=== PATIENT | female | born 1955 | race African-American/Black ===

== ENCOUNTER 2022-09-04 04:17 | Inpatient (IN) | payer MEDICAID, OTHER ==
[2022-09-04] VITALS (37 sets, daily range): BP systolic 94–189; BP diastolic 62–119
[~2022-09-04] VITALS: Ht 170.2 cm; Wt 41.5 kg
[2022-09-04] MEDS ORDERED: ALBUTEROL (0.083%) 2.5MG/3ML NEB HHN STA (04:19)
[2022-09-04] MEDS ORDERED: METHYLPREDNISOLONE SOD SUCC 125 MG/2 ML VIAL IV STA (04:19)
[2022-09-04] MEDS ORDERED: IPRATROPIUM BROMIDE (0.02%) 0.5MG/2.5ML NEB HHN STA (04:19)
[2022-09-04] MEDS ORDERED: MAGNESIUM 2 G PREMIX 50 ML IV STA (04:19)
[2022-09-04] MEDS ORDERED: ASPIRIN 81MG TABLET PO ONE (04:30)
[2022-09-04 05:52] LABS: BASOPHILS % 0.2 % (0.0-2.0); EOSINOPHILS % 0.1 % (0.0-5.0); HEMATOCRIT. 37.8 % (36.0-48.0); HEMOGLOBIN. 12.5 g/dL (12.0-16.0); LYMPHOCYTES % 16.6 % (20.0-50.0); MEAN CORPUSCULAR HEMOGLOBIN 32.1 pg (28.0-32.0); MEAN CORPUSCULAR VOLUME 97.3 fL (81.0-99.0); MEAN PLATELET VOLUME 8.1 fl (7.4-10.4); MONOCYTES % 3.9 % (2.0-8.0); NEUTROPHILS % 79.2 % (40.0-76.0); PLATELET 482 x1000/uL (130-400); RED BLOOD CELL COUNT 3.89 mill/uL (4.2-5.4); RED CELL DISTRIBUTION WIDTH 14.2 % (11.6-14.6)
[2022-09-04 06:02] LABS: CHLORIDE 110 mEq/L (98-107)
[2022-09-04] MEDS ORDERED: IPRATROPIUM/ALBUTEROL 0.5-3(2.5)MG/3ML NEB HHN PRN (10:30)
[2022-09-04] MEDS ORDERED: DOCUSATE SODIUM 100MG CAPSULE PO PRN (10:30)
[2022-09-04] MEDS ORDERED: ONDANSETRON HCL 4MG/2ML INJ IV PRN (10:30)
[2022-09-04] MEDS ORDERED: MAGNESIUM/ALUMINUM HYDROXIDE/SIMETHICONE 30ML UDC PO PRN (10:30)
[2022-09-04] MEDS ORDERED: CLONIDINE 0.1MG TABLET PO PRN (10:30)
[2022-09-04] MEDS ORDERED: ACETAMINOPHEN 325MG TABLET PO PRN (10:30)
[2022-09-04] MEDS ORDERED: GUAIFENESIN 200MG/10ML SUGAR FREE UDC PO PRN (10:30)
[2022-09-04] MEDS: METHYLPREDNISOLONE SOD SUCC 40 MG/ML VIAL IV SCH ×3 (11:19→22:14)
[2022-09-04] MEDS: ENOXAPARIN 30MG/0.3ML SYR SUBCUT SCH (11:20)
[2022-09-04] MEDS: AMLODIPINE 10MG TABLET PO SCH (11:20)
[2022-09-04] MEDS: TRAMADOL 50MG TABLET PO PRN (11:20)
[2022-09-04] MEDS ORDERED: ALPRAZOLAM 0.25 MG TABLET PO PRN (13:00)
[2022-09-04] MEDS ORDERED: DILTIAZEM HCL 5MG/ML 5ML VIAL IV ONE (13:00)
[2022-09-04] MEDS: HYDRALAZINE HCL 50MG TABLET PO SCH ×2 (13:12→22:14)
[2022-09-04] MEDS ORDERED: HYDRALAZINE 20MG/ML VIAL IV PRN (13:15)
[2022-09-04] MEDS ORDERED: FUROSEMIDE 40MG/4ML VIAL IVP NR (13:15)
[2022-09-04 14:50] LABS: BG BASE EXCESS -2.3 mmol/L (-2.0-2.0); BG CARBOXYHEMOGLOBIN 0.6 % (0.5-1.5); BG FRACTION INSPIRED OXYGEN 70; BG METHEMOGLOBIN 0.2 % (0.0-1.5); BG OXYHEMOGLOBIN 93.2 % (94.0-97.0); BG PCO2 36.7 mmHg (35.0-45.0); BG PH 7.395 (7.350-7.450); BG PO2 69.5 mmHg (75.0-100.0); BG SAMPLE SITE LEFT BRACHIAL; BG TOTAL HEMOGLOBIN 15.1 g/dL (12.0-18.0); BG VENT MODE MASK - BIPAP
[2022-09-04] MEDS ORDERED: ALBU6.7H3 INH (15:44)
[2022-09-04] MEDS ORDERED: BUDE6HFA INH (15:44)
[2022-09-04] MEDS ORDERED: COR3 MT (15:44)
[2022-09-04] MEDS: IPRATROPIUM/ALBUTEROL 0.5-3(2.5)MG/3ML NEB HHN SCH ×2 (16:10→20:34)
[2022-09-04 16:42] LABS: *AMPHETAMINES SCREEN URINE NEGATIVE (NEGATIVE); *BARBITURATES SCREEN URINE NEGATIVE (NEGATIVE); *BENZODIAZEPINES SCREEN URINE NEGATIVE (NEGATIVE); *COCAINE SCREEN URINE NEGATIVE (NEGATIVE); CANNABINOID URINE SCREEN NEGATIVE (NEGATIVE); METHADONE URINE SCREEN NEGATIVE (NEGATIVE); OPIATES URINE SCREEN NEGATIVE (NEGATIVE); PHENCYCLIDINE URINE SCREEN NEGATIVE (NEGATIVE)
[2022-09-04] MEDS: NICOTINE 21MG PATCH TD SCH (17:42)
[2022-09-04] MEDS ORDERED: NALOXONE HCL 0.4MG/ML VIAL IV PRN (17:45)
[2022-09-04] MEDS ORDERED: ENOXAPARIN 40MG/0.4ML SYR SUBCUT NR (21:00)
[2022-09-05] VITALS (34 sets, daily range): BP systolic 95–168; BP diastolic 32–148
[2022-09-05] MEDS: IPRATROPIUM/ALBUTEROL 0.5-3(2.5)MG/3ML NEB HHN SCH ×3 (00:18→09:10)
[2022-09-05] MEDS: METHYLPREDNISOLONE SOD SUCC 40 MG/ML VIAL IV SCH ×4 (05:16→23:05)
[2022-09-05] MEDS: HYDRALAZINE HCL 50MG TABLET PO SCH ×3 (05:19→22:00)
[2022-09-05 08:22] LABS: BG CARBOXYHEMOGLOBIN 0.5 % (0.5-1.5); BG DEOXYHEMOGLOBIN 0.7 % (0.0-5.0); BG METHEMOGLOBIN 0.3 % (0.0-1.5); BG OXYGEN SATURATION 99.3 % (92.0-98.5); BG OXYHEMOGLOBIN 98.5 % (94.0-97.0); BG PCO2 40.8 mmHg (35.0-45.0); BG PH 7.484 (7.350-7.450); BG SAMPLE SITE RIGHT BRACHIAL; BG TOTAL HEMOGLOBIN 13.7 g/dL (12.0-18.0); BG VENT MODE MASK - BIPAP
[2022-09-05] MEDS: NICOTINE 21MG PATCH TD SCH (09:53)
[2022-09-05] MEDS: AMLODIPINE 10MG TABLET PO SCH (09:53)
[2022-09-05] MEDS: ENOXAPARIN 30MG/0.3ML SYR SUBCUT SCH (10:06)
[2022-09-05] MEDS: TRAMADOL 50MG TABLET PO PRN (11:18)
[2022-09-05 12:05] LABS: HEMATOCRIT. 39.2 % (36.0-48.0); HEMOGLOBIN. 13.4 g/dL (12.0-16.0); MEAN CORPUSCULAR VOLUME 96.3 fL (81.0-99.0); PLATELET 430 x1000/uL (130-400); RED BLOOD CELL COUNT 4.07 mill/uL (4.2-5.4); RED CELL DISTRIBUTION WIDTH 13.7 % (11.6-14.6)
[2022-09-05] MEDS ORDERED: FUROSEMIDE 40MG/4ML VIAL IVP NR (12:30)
[2022-09-05] MEDS: SPIRONOLACTONE 25MG TABLET PO SCH (13:12)
[2022-09-05] MEDS: LOSARTAN POTASSIUM 25 MG TABLET PO SCH ×2 (13:13→22:00)
[2022-09-05] MEDS: NITROGLYCERIN OINT 1GM/INCH UDPKT TD SCH ×3 (13:16→23:03)
[2022-09-05] MEDS: NEBIVOLOL HCL 5 MG TABLET PO SCH (13:16)
[2022-09-05 15:55] LABS: CHLORIDE 101 mEq/L (98-107)
[2022-09-05 16:08] LABS: HDL CHOLESTEROL 66 mg/dL (40-59); LDL CHOLESTEROL 155 mg/dL (5-100)
[2022-09-05] MEDS: ASPIRIN 81MG EC TABLET PO SCH (16:39)
[2022-09-05 17:46] LABS: T4 FREE 1.01 ng/dL (0.76-1.46)
[2022-09-06] VITALS (40 sets, daily range): BP systolic 85–122; BP diastolic 49–82
[2022-09-06] MEDS: METHYLPREDNISOLONE SOD SUCC 40 MG/ML VIAL IV SCH ×3 (06:08→17:52)
[2022-09-06] MEDS: LOSARTAN POTASSIUM 25 MG TABLET PO SCH ×3 (06:08→21:49)
[2022-09-06] MEDS: NITROGLYCERIN OINT 1GM/INCH UDPKT TD SCH ×3 (06:08→17:53)
[2022-09-06] MEDS: HYDRALAZINE HCL 50MG TABLET PO SCH ×3 (06:08→21:49)
[2022-09-06 06:21] LABS: PLATELET ESTIMATE INCREASED
[2022-09-06] MEDS: IPRATROPIUM BROMIDE (0.02%) 0.5MG/2.5ML NEB HHN SCH ×3 (08:37→21:02)
[2022-09-06] MEDS: SPIRONOLACTONE 25MG TABLET PO SCH (09:15)
[2022-09-06] MEDS: ASPIRIN 81MG EC TABLET PO SCH (09:15)
[2022-09-06] MEDS: NEBIVOLOL HCL 5 MG TABLET PO SCH (09:15)
[2022-09-06] MEDS: AMLODIPINE 5MG TABLET PO SCH (09:16)
[2022-09-06] MEDS: FUROSEMIDE 40MG TABLET PO SCH (09:16)
[2022-09-06 09:29] LABS: HEMATOCRIT. 38.6 % (36.0-48.0); HEMOGLOBIN. 13.3 g/dL (12.0-16.0); MEAN CORPUSCULAR HEMOGLOBIN 33.1 pg (28.0-32.0); MEAN CORPUSCULAR VOLUME 96.1 fL (81.0-99.0); PLATELET 416 x1000/uL (130-400); RED BLOOD CELL COUNT 4.02 mill/uL (4.2-5.4); RED CELL DISTRIBUTION WIDTH 13.7 % (11.6-14.6)
[2022-09-06 09:55] LABS: CHLORIDE 102 mEq/L (98-107)
[2022-09-06] MEDS: ENOXAPARIN 30MG/0.3ML SYR SUBCUT SCH (10:20)
[2022-09-06] MEDS: NICOTINE 21MG PATCH TD SCH (10:20)
[2022-09-06 17:16] LABS: PLATELET ESTIMATE SLIGHTLY INCREASED
[2022-09-06] MEDS: ENOXAPARIN 60MG/0.6ML SYR SUBCUT SCH (17:52)
[2022-09-06] MEDS: ATORVASTATIN CALCIUM 40MG TABLET PO SCH (21:48)
[2022-09-07] VITALS (11 sets, daily range): BP systolic 113–142; BP diastolic 44–79
[2022-09-07] MEDS: IPRATROPIUM BROMIDE (0.02%) 0.5MG/2.5ML NEB HHN SCH ×4 (01:17→20:07)
[2022-09-07] MEDS: ENOXAPARIN 60MG/0.6ML SYR SUBCUT SCH (06:14)
[2022-09-07] MEDS: LOSARTAN POTASSIUM 25 MG TABLET PO SCH ×3 (06:14→21:00)
[2022-09-07] MEDS: NITROGLYCERIN OINT 1GM/INCH UDPKT TD SCH ×2 (06:15)
[2022-09-07] MEDS: HYDRALAZINE HCL 50MG TABLET PO SCH ×3 (06:15→21:02)
[2022-09-07 06:25] LABS: HEMATOCRIT. 39.1 % (36.0-48.0); HEMOGLOBIN. 13.3 g/dL (12.0-16.0); LYMPHOCYTES % 7.2 % (20.0-50.0); MEAN CORPUSCULAR HEMOGLOBIN 32.6 pg (28.0-32.0); MEAN CORPUSCULAR VOLUME 95.8 fL (81.0-99.0); MEAN PLATELET VOLUME 9.3 fl (7.4-10.4); MONOCYTES % 4.9 % (2.0-8.0); NEUTROPHILS % 87.9 % (40.0-76.0); PLATELET 397 x1000/uL (130-400); RED BLOOD CELL COUNT 4.08 mill/uL (4.2-5.4); RED CELL DISTRIBUTION WIDTH 13.7 % (11.6-14.6)
[2022-09-07 06:27] LABS: PROTHROMBIN TIME 10.4 sec (9.6-11.0)
[2022-09-07 06:50] LABS: CHLORIDE 98 mEq/L (98-107)
[2022-09-07] MEDS: SPIRONOLACTONE 25MG TABLET PO SCH (08:37)
[2022-09-07] MEDS: AMLODIPINE 5MG TABLET PO SCH (08:37)
[2022-09-07] MEDS: ASPIRIN 81MG EC TABLET PO SCH (08:37)
[2022-09-07] MEDS: FUROSEMIDE 40MG TABLET PO SCH (08:38)
[2022-09-07] MEDS: METHYLPREDNISOLONE SOD SUCC 40 MG/ML VIAL IV SCH ×2 (08:38→17:11)
[2022-09-07] MEDS: NICOTINE 21MG PATCH TD SCH (08:39)
[2022-09-07] MEDS: ATORVASTATIN CALCIUM 40MG TABLET PO SCH (21:00)
[2022-09-08] VITALS (7 sets, daily range): BP systolic 113–128; BP diastolic 59–79
[2022-09-08] MEDS: IPRATROPIUM BROMIDE (0.02%) 0.5MG/2.5ML NEB HHN SCH ×4 (01:54→21:20)
[2022-09-08] MEDS: LOSARTAN POTASSIUM 25 MG TABLET PO SCH ×3 (05:00→22:06)
[2022-09-08] MEDS: HYDRALAZINE HCL 50MG TABLET PO SCH ×3 (05:01→22:06)
[2022-09-08 05:55] LABS: EOSINOPHILS % 0.4 % (0.0-5.0); HEMATOCRIT. 45.2 % (36.0-48.0); HEMOGLOBIN. 15.5 g/dL (12.0-16.0); LYMPHOCYTES % 33.6 % (20.0-50.0); MEAN CORPUSCULAR HEMOGLOBIN 32.9 pg (28.0-32.0); MEAN PLATELET VOLUME 8.9 fl (7.4-10.4); MONOCYTES % 7.3 % (2.0-8.0); NEUTROPHILS % 58.7 % (40.0-76.0); PLATELET 429 x1000/uL (130-400); RED BLOOD CELL COUNT 4.71 mill/uL (4.2-5.4)
[2022-09-08 06:01] LABS: PROTHROMBIN TIME 10.3 sec (9.6-11.0)
[2022-09-08 08:21] LABS: CHLORIDE 98 mEq/L (98-107)
[2022-09-08] MEDS: NICOTINE 21MG PATCH TD SCH ×2 (09:00→09:28)
[2022-09-08] MEDS: SPIRONOLACTONE 25MG TABLET PO SCH (09:00)
[2022-09-08] MEDS: NEBIVOLOL HCL 5 MG TABLET PO SCH (09:00)
[2022-09-08] MEDS: ASPIRIN 81MG EC TABLET PO SCH (09:27)
[2022-09-08] MEDS: METHYLPREDNISOLONE SOD SUCC 40 MG/ML VIAL IV SCH (09:28)
[2022-09-08] MEDS: AMLODIPINE 5MG TABLET PO SCH (09:28)
[2022-09-08] MEDS ORDERED: ASPIRIN/SOD BICARB/CITRIC ACID 324MG TAB EFF ONE (14:42)
[2022-09-08] MEDS ORDERED: FENTANYL CITRATE/PF 50MCG/ML 2ML VIAL ONE (14:44)
[2022-09-08] MEDS ORDERED: MIDAZOLAM HCL 2 MG/2 ML VIAL ONE (14:44)
[2022-09-08] MEDS ORDERED: HEPARIN 1000 UNITS/ML 10ML ONE (14:45)
[2022-09-08] MEDS ORDERED: IODIXANOL 320MG/ML 100 ML BOTTLE IV ONE (14:45)
[2022-09-08] MEDS ORDERED: LIDOCAINE HCL/PF 2% 20MG/ML 5 ML/VIAL ONE (14:45)
[2022-09-08] MEDS ORDERED: ACETAMINOPHEN 325MG TABLET PO PRN (16:00)
[2022-09-08] MEDS ORDERED: ATROPINE SULFATE 1MG/10ML SYR IV PRN (16:00)
[2022-09-08] MEDS ORDERED: MORPHINE SULFATE 2 MG/ML CPJ (NOT FOR IM USE) IV PRN (16:00)
[2022-09-08] MEDS ORDERED: SODIUM CHLORIDE 0.45% 1,000 ML IV NR (16:00)
[2022-09-08] MEDS: BUDESONIDE 0.5MG/2ML NEB HHN SCH (21:20)
[2022-09-08] MEDS: ATORVASTATIN CALCIUM 40MG TABLET PO SCH (22:05)
[2022-09-09] VITALS: BP 122/74
[2022-09-09] MEDS: IPRATROPIUM BROMIDE (0.02%) 0.5MG/2.5ML NEB HHN SCH ×4 (01:36→20:25)
[2022-09-09 04:00] VITALS: BP 127/62
[2022-09-09 04:09] LABS: HIV SCREEN 4G Non Reactive (Non Reactive)
[2022-09-09] MEDS: HYDRALAZINE HCL 50MG TABLET PO SCH ×3 (06:13→21:12)
[2022-09-09] MEDS: LOSARTAN POTASSIUM 25 MG TABLET PO SCH ×3 (06:13→21:12)
[2022-09-09] MEDS ORDERED: PREDNISONE 20MG TABLET PO SCH (07:20)
[2022-09-09] MEDS: BUDESONIDE 0.5MG/2ML NEB HHN SCH ×2 (07:32→20:25)
[2022-09-09 07:37] LABS: BASOPHILS % 0.1 % (0.0-2.0); EOSINOPHILS % 0.8 % (0.0-5.0); HEMATOCRIT. 47.5 % (36.0-48.0); HEMOGLOBIN. 16.2 g/dL (12.0-16.0); LYMPHOCYTES % 29.1 % (20.0-50.0); MEAN CORPUSCULAR HEMOGLOBIN 32.8 pg (28.0-32.0); MEAN PLATELET VOLUME 8.8 fl (7.4-10.4); MONOCYTES % 7.9 % (2.0-8.0); NEUTROPHILS % 62.1 % (40.0-76.0); PLATELET 431 x1000/uL (130-400); RED BLOOD CELL COUNT 4.95 mill/uL (4.2-5.4); RED CELL DISTRIBUTION WIDTH 13.6 % (11.6-14.6)
[2022-09-09 08:00] VITALS: BP 108/70
[2022-09-09] MEDS ORDERED: HEPARIN 1000 UNITS/ML 10ML ONE (08:18)
[2022-09-09] MEDS ORDERED: ASPIRIN/SOD BICARB/CITRIC ACID 324MG TAB EFF ONE (08:18)
[2022-09-09] MEDS ORDERED: IODIXANOL 320MG/ML 100 ML BOTTLE IV ONE (08:19)
[2022-09-09] MEDS ORDERED: LIDOCAINE HCL 1% 50ML VIAL (10MG/ML) ONE (08:19)
[2022-09-09] MEDS ORDERED: MIDAZOLAM HCL 2 MG/2 ML VIAL ONE (08:43)
[2022-09-09] MEDS ORDERED: FENTANYL CITRATE/PF 50MCG/ML 2ML VIAL ONE (08:43)
[2022-09-09] MEDS: NEBIVOLOL HCL 5 MG TABLET PO SCH (09:00)
[2022-09-09] MEDS: ASPIRIN 81MG EC TABLET PO SCH (09:00)
[2022-09-09] MEDS: SPIRONOLACTONE 25MG TABLET PO SCH (09:00)
[2022-09-09] MEDS: NICOTINE 21MG PATCH TD SCH (09:00)
[2022-09-09] MEDS: AMLODIPINE 5MG TABLET PO SCH (09:00)
[2022-09-09 09:16] LABS: CHLORIDE 98 mEq/L (98-107)
[2022-09-09] MEDS ORDERED: CEFAZOLIN 1000MG PREMIX 50 ML IV ONE (09:47)
[2022-09-09] MEDS ORDERED: CLOPIDOGREL 75MG TABLET ONE (09:47)
[2022-09-09] MEDS ORDERED: MORPHINE SULFATE 2 MG/ML CPJ (NOT FOR IM USE) IV PRN (10:00)
[2022-09-09] MEDS ORDERED: SODIUM CHLORIDE 0.45% 1,000 ML IV SCH (10:00)
[2022-09-09] MEDS ORDERED: ACETAMINOPHEN 325MG TABLET PO PRN (10:00)
[2022-09-09 12:00] VITALS: BP 119/67
[2022-09-09 15:31] VITALS: BP 112/59
[2022-09-09 20:00] VITALS: BP 116/73
[2022-09-09] MEDS: ATORVASTATIN CALCIUM 40MG TABLET PO SCH (21:10)
[2022-09-10] VITALS: BP 107/63
[2022-09-10] MEDS: IPRATROPIUM BROMIDE (0.02%) 0.5MG/2.5ML NEB HHN SCH ×2 (01:47→09:12)
[2022-09-10 04:00] VITALS: BP 113/62
[2022-09-10] MEDS: LOSARTAN POTASSIUM 25 MG TABLET PO SCH (05:34)
[2022-09-10] MEDS: HYDRALAZINE HCL 50MG TABLET PO SCH (05:34)
[2022-09-10 06:26] LABS: BASOPHILS % 0.1 % (0.0-2.0); HEMATOCRIT. 45.4 % (36.0-48.0); HEMOGLOBIN. 15.2 g/dL (12.0-16.0); LYMPHOCYTES % 32.3 % (20.0-50.0); MEAN CORPUSCULAR HEMOGLOBIN 32.6 pg (28.0-32.0); MEAN CORPUSCULAR VOLUME 97.1 fL (81.0-99.0); MEAN PLATELET VOLUME 8.1 fl (7.4-10.4); MONOCYTES % 8.5 % (2.0-8.0); NEUTROPHILS % 58.1 % (40.0-76.0); PLATELET 402 x1000/uL (130-400); RED BLOOD CELL COUNT 4.68 mill/uL (4.2-5.4); RED CELL DISTRIBUTION WIDTH 13.4 % (11.6-14.6)
[2022-09-10] MEDS ORDERED: PREDNISONE 20MG TABLET PO SCH (07:20)
[2022-09-10 08:02] VITALS: BP 106/56
[2022-09-10] MEDS ORDERED: CLOPIDOGREL 75MG TABLET PO SCH (09:00)
[2022-09-10] MEDS: BUDESONIDE 0.5MG/2ML NEB HHN SCH (09:10)
[2022-09-10] MEDS: NICOTINE 21MG PATCH TD SCH (10:07)
[2022-09-10] MEDS: NEBIVOLOL HCL 5 MG TABLET PO SCH (10:08)
[2022-09-10] MEDS: ASPIRIN 81MG EC TABLET PO SCH (10:08)
[2022-09-10] MEDS: AMLODIPINE 5MG TABLET PO SCH (10:08)
[2022-09-10] MEDS ORDERED: NALOXONE HCL 0.4MG/ML VIAL IV PRN (10:15)
[2022-09-10 12:00] VITALS: BP 104/59
[2022-09-10 13:27] VITALS: BP 104/59
[2022-09-11] MEDS ORDERED: PREDNISONE 10MG TABLET PO SCH (07:20)
[2022-09-11 20:01] LABS: CHLORIDE 100 mEq/L (98-107)
== END 2022-09-10 18:56 | disposition home or self-care (01) | DRG 174 ==
LOC: ER 04:22 → 5EST 05:32 → 3WST 09-08 14:40
PROVIDERS: ADMIT Hospitalist; ATTEND Hospitalist
PROC: 5A09457 Assistance with Respiratory Ventilation, 24-96 Consecutive Hours, Continuous Positive Airway Pressure (ICD-10-PCS; 2022-09-04)
PROC: 4A023N7 Measurement of Cardiac Sampling and Pressure, Left Heart, Percutaneous Approach (ICD-10-PCS; 2022-09-08)
PROC: B2111ZZ Fluoroscopy of Multiple Coronary Arteries using Low Osmolar Contrast (ICD-10-PCS; 2022-09-08)
PROC: 027034Z Dilation of Coronary Artery, One Artery with Drug-eluting Intraluminal Device, Percutaneous Approach (ICD-10-PCS; principal; 2022-09-09)
DX: I21.4 Non-ST elevation (NSTEMI) myocardial infarction (principal); J96.01 Acute respiratory failure with hypoxia; E44.1 Mild protein-calorie malnutrition; I31.39 Other pericardial effusion (noninflammatory); I25.10 Atherosclerotic heart disease of native coronary artery without angina pectoris; I11.0 Hypertensive heart disease with heart failure; I50.22 Chronic systolic (congestive) heart failure; J44.1 Chronic obstructive pulmonary disease with (acute) exacerbation; F17.210 Nicotine dependence, cigarettes, uncomplicated; Z20.822 Contact with and (suspected) exposure to COVID-19; E78.5 Hyperlipidemia, unspecified; E05.90 Thyrotoxicosis, unspecified without thyrotoxic crisis or storm; I34.0 Nonrheumatic mitral (valve) insufficiency; D72.829 Elevated white blood cell count, unspecified; R74.01 Elevation of levels of liver transaminase levels; R73.9 Hyperglycemia, unspecified; I27.20 Pulmonary hypertension, unspecified; Z79.82 Long term (current) use of aspirin; Z82.49 Family history of ischemic heart disease and other diseases of the circulatory system; Z68.1 Body mass index [BMI] 19.9 or less, adult; Z79.899 Other long term (current) drug therapy
CPT/HCPCS: 36415; 36600; 71045; 78580; 80048; 80053; 80061; 80305; 82375; 82805; 83036; 83880; 84439; 84443; 84481; 84484; 85025; 85347; 87389; 87426; 92928; 93005; 93306; 93454; 93458; 93970; 94640; 99285; C1760; C1769; C1874; C1887; C1893; C9803; J0360; J0690; J1644; J1650; J1940; J2250; J2270; J2920; J2930; J3010; J3475; J3490; J7512; J7626; Q9967